=== PATIENT | female | born 1945 | race Caucasian/White ===

== ENCOUNTER 2021-01-26 15:26 | Outpatient (CLI) | payer OTHER, SELFPAY ==
--- NOTE | 2021-01-26 15:40 | XR_ITS ---
WS: [id number] XR chest 2V* [id number] REASON FOR EXAM: SOB FINDINGS: Mild tortuosity of the thoracic aorta. Normal heart size. Calcified granulomatous changes in both hemithoraces. Small linear areas of lung opacity in the left lower lung field most likely atelectasis or scarring. (No previous examination to compare with). Blunting of the right costophrenic angle and thickening of the minor fissure on the right. No definite active pulmonary parenchymal or pleural disease. Mild degenerative changes in the lower thoracic spine. XR/XR chest 2V* [id number] IMPRESSION: No definite acute chest abnormality. Presumed chronic changes in the left lower lung as above.
--- NOTE | 2021-01-26 15:41 | XR_ITS ---
WS: [id number] XR shoulder LT min 2V* [id number] REASON FOR EXAM: LT. SHOULDER PAIN FINDINGS: Moderate narrowing of the left acromioclavicular joint space. Mild subchondral sclerosis and small ma rginal osteophytes of the acromion and clavicle. Glenohumeral joint spaces intact. No significant bony abnormality of the glenoid or humeral head. No significant soft tissue abnormality. XR/XR shoulder LT min 2V* [id number] IMPRESSION: Mild osteoarthritis as above.
== END 2021-01-26 15:27 | disposition home or self-care (01) ==
PROVIDERS: PCP Nurse Practitioner Family; Visit Provider Nurse Practitioner Family
DX: R06.02 Shortness of breath (principal); M19.012 Primary osteoarthritis, left shoulder
CPT/HCPCS: 71046; 73030

== ENCOUNTER 2021-04-01 09:44 | Outpatient (CLI) | payer MEDICARE, SELFPAY ==
[2021-04-01 10:17] VITALS: BMI 25.2
--- NOTE | 2021-04-01 10:19 | NMCV_ITS ---
NM brandt perf SPECT r/s* [id number] Cheyenne Archer Age: 75 Gender: F : 1945 Exam Date: 04/01/2021 10:57 Ordering Phys: Baldemar Pratt MD ([email or web address]) Technologist: MONICA Howard Exam Location: [facility] Indications: SHORTNESS OF BREATH STRESS TEST [facility] IMAGE PROTOCOL Rest/Stress 1 Lexiscan Day Radiopharmaceutical Dose (mCi) Administration Site Administered by Rest: Tc-99m 11.0 IV MONICA Angel Sestamibi Stress:Tc-99m 32.5 IV MONICA Angel Sestamibi Rest: 01-Apr-2021 60 Discovery 630 Stress: 01-Apr-2021 30 Discovery 630 0.4mg Lexiscan. Images obtained in supine and prone position. SPECT RESULTS Technical Quality: Excellent Raw Data Analysis: Normal Image Corrections: No attenuation or motion correction applied Summed Stress Score: 0 Summed Rest Score: 0 Summed Difference Score: 0 PERFUSION FINDINGS Uniform myocardial tracer uptake with no significant perfusion abnormalities FUNCTIONAL RESULTS (calculated via Gated SPECT) Stress Image LV EF (%): 94 Stress EDV (mL):36 TID: 0.86 Stress ESV (mL):2 FUNCTIONAL FINDINGS: Segmental wall motion analysis revealing no gross wall motion abnormalities IMPRESSIONS 1. Unremarkable myocardial perfusion imaging. 2. Normal LV ejection fraction of 94%. 3. LV wall motion analysis revealing no gross wall motion abnormalities. 4. Normal LV volume. No significant coronary ischemia, based on the above findings Dr Baldemar Pratt MD FAC (Electronically Signed) Final Date: 01 April 2021 20:11 S
--- NOTE | 2021-04-01 10:19 | ECG_ITS ---
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 Interpretive Statements NAME OF STUDY: LEXISCAN SESTAMIBI STRESS TEST INDICATION: Shortness of Breath, PROCEDURE: At the baseline, the EKG revealed normal sinus rhythm with a poor R wave progression. Nonspecific ST-T changes.. The baseline blood pressure was 186/82 mm Hg with a heart rate of 64 beats/min. Lexiscan was infused over a period of 20 seconds. A total of 0.4 milligrams of Lexiscan was infused. The stress phase was continued for a total of 5 minutes. Heart rate at the end of the stress phase was 99 with a blood pressure 181/63. The EKG at the peak infusion revealed no significant changes. Sestamibi was injected 20 seconds after the Lexiscan infusion. Blood pressure at the end of the recovery phase was 179/83 with a heart rate of 91 per minute. CONCLUSION: 1. No significant EKG changes with the LexiScan infusion 2. No LexiScan induced chest pain or cardiac arrhythmia 3. Normal blood pressure and heart rate response 4. Sestamibi/sestamibi perfusion scan pending; see separate report. Electronically Signed On 04-03-2021 2:04:36 [employer] by Baldemar Pratt M.D. [id number]
[2021-04-01] MEDS: regadenoson 0.4 Mg/5 ml Syringe IVP (11:31)
[2021-04-01 11:38] VITALS: BP 178/83; PULSE 92
== END 2021-04-01 09:45 | disposition home or self-care (01) ==
LOC: CDL 09:46
PROVIDERS: PCP Nurse Practitioner Family; Visit Provider Internal Medicine Cardiovascular Disease
DX: R06.02 Shortness of breath (principal)
CPT/HCPCS: 78452; 93017; A9500; J2785

== ENCOUNTER 2021-04-30 14:54 | Outpatient (CLI) | payer MEDICARE, SELFPAY ==
--- NOTE | 2021-04-30 15:00 | USCV_ITS ---
Cheyenne Archer Age: 75 Gender: F : 1945 Exam Date: 04/30/2021 15:10 Ordering Phys: Baldemar Pratt MD ([email or web address]) Technologist: Exam Location: [facility] [place] Indication: H/O CAD BP: 135 / 70 HR: 84 Rhythm: Sinus Technical Quality: Adequate MEASUREMENTS (Male / Female) Normal Values 2D ECHO LV Diastolic Diameter PLAX 3.3 cm 4.2 - 5.9 / 3.9 - 5.3 cm LV Systolic Diameter PLAX 2.2 cm IVS Diastolic Thickness 0.6 cm 0.6 - 1.0 / 0.6 - 0.9 cm IVS Systolic Thickness 1.1 cm LVPW Diastolic Thickness 1.1 cm 0.6 - 1.0 / 0.6 - 0.9 cm LVPW Systolic Thickness 1.1 cm LVOT Diameter 2.0 cm LV Ejection Fraction 2D Teich 65.9 % LV Ejection Fraction MOD 2C 69.0 % LV Ejection Fraction 2C AL 70.5 % LA Diameter 3.4 cm LA Width 3.4 cm LA Height 4.3 cm RA Width 3.4 cm RA Height 2.9 cm M-MODE Aortic Annulus Diameter 2.6 cm LA Ao Ratio MM 1.3 MV E Point Septal Separation 0.7 cm DOPPLER AV Peak Velocity 110.0 cm/s LVOT Peak Velocity 91.0 cm/s AV Area Cont Eq vti 3.2 cm squared AV Area Cont Eq pk 2.7 cm squared MV Area PHT 5.0 cm squared Mitral E to A Ratio 0.7 MV E' Velocity 33.0 cm/s Mitral E to MV E' Ratio 5.5 Mitral E to LV E' Lateral Ratio 5.4 Mitral E to LV E' Septal Ratio 5.5 TR Peak Velocity 160.3 cm/s TR Peak Gradient 10.3 mmHg TV Peak E Velocity 84.0 cm/s Right Atrial Pressure 3.0 mmHg Pulmonary Artery Systolic Pressu 13.3 mmHg FINDINGS Left Ventricle Normal left ventricular size and systolic function, EF 72 %. No regional wall motion abnormalities. Grade I/IV diastolic dysfunction (abnormal relaxation filling pattern), normal to mildly elevated filling pressures. Right Ventricle The right ventricle is normal in size and function. Right Atrium The right atrium is normal in size. Left Atrium The left atrium is normal in size. Mitral Valve Mild mitral valve regurgitation. Mild mitral annular calcification. Aortic Valve No gross abnormalities noted Tricuspid Valve No gross abnormalities noted Pulmonic Valve No gross abnormalities noted Pericardium Normal pericardium without effusion. Aorta Normal ascending aorta dimension. CONCLUSIONS Normal left ventricular size and systolic function, EF 72 %. No regional wall motion abnormalities. Grade I/IV diastolic dysfunction (abnormal relaxation filling pattern), normal to mildly elevated filling pressures. Mild mitral valve regurgitation. Mild mitral annular calcification. There is no pericardial effusion. There are no intracardiac masses. No previous study is available for comparison. Dr Baldemar Pratt MD FACC (Electronically Signed) Final Date: 01 May 2021 14:58 S
== END 2021-04-30 14:55 | disposition home or self-care (01) ==
PROVIDERS: PCP Nurse Practitioner Family; Visit Provider Internal Medicine Cardiovascular Disease
DX: R06.00 Dyspnea, unspecified (principal); I25.118 Atherosclerotic heart disease of native coronary artery with other forms of angina pectoris; I34.0 Nonrheumatic mitral (valve) insufficiency
CPT/HCPCS: 93306